=== PATIENT | male | born 1990 | race Two or more races ===

== ENCOUNTER 2022-12-28 13:47 | Emergency (ER) | payer SELFPAY ==
[2022-12-28] MEDS ORDERED: Lidocaine/Epineph/Tetracaine 3 ML Syringe TOP ONE (14:41)
[2022-12-28] MEDS ORDERED: Lidocaine 1% with EPINEPHrine 1:100,000 10 ML MDV INJECT ONE (15:56)
[2022-12-28] MEDS ORDERED: Lidocaine 2% with EPINEPHrine 1:100,000 20 ML MDV INJECT ONE (16:06)
== END 2022-12-28 17:08 | disposition home or self-care (01) ==
LOC: JD.ED 13:47
DX: L02.223 Furuncle of chest wall (principal)
CPT/HCPCS: 10060; 99283; A9270; J3490